=== PATIENT | male | born 1970 | race Caucasian/White ===

== ENCOUNTER 2019-03-07 15:42 | Outpatient (CLI) | payer OTHER | END 2019-03-07 15:43 | disposition home or self-care (01) | LOC: CTENTCT 15:42 | PROVIDERS: ATTEND Otolaryngology Plastic Surgery within the Head & Neck | DX: J32.9 Chronic sinusitis, unspecified (principal) | CPT/HCPCS: 70486 ==

== ENCOUNTER 2019-03-30 09:58 | Day surgery (SDC) | payer OTHER ==
[2019-03-29 10:41] VITALS: BMI 35.8
[2019-03-30] MEDS ORDERED: Oxymetazoline HCl 0.05% ( 15 ML ) ONE ×2 (10:59→13:11)
[2019-03-30] MEDS ORDERED: Lidocaine 1% w/Epinephrine 1:100K 20 ML VIAL ONE (13:11)
[2019-03-30] MEDS ORDERED: Ferric Subsulfate (ASTRINGYN) 8 ML VIAL ONE (13:11)
[2019-03-30] MEDS ORDERED: Bacitracin Zinc Ointment 30 gm TUBE ONE (13:11)
[2019-03-30] MEDS ORDERED: Fentanyl 100 MCG/2 ML VIAL ONE ×3 (13:14→15:03)
[2019-03-30] MEDS ORDERED: PROPOFOL 200 MG/20 ML VIAL ONE (14:00)
[2019-03-30] MEDS ORDERED: Succinylcholine Chloride 20 MG/ML 10 ml SYRINGE FS ONE (14:00)
[2019-03-30] MEDS ORDERED: Dexamethasone 20 MG/5 ML VIAL ONE (14:00)
[2019-03-30] MEDS ORDERED: Ondansetron PF 4 MG/2 ML Vial ONE (14:00)
[2019-03-30] MEDS ORDERED: Glycopyrrolate 0.2 MG/ML 5 ML SYRINGE ONE (14:00)
[2019-03-30] MEDS ORDERED: Rocuronium Bromide 10 MG/ML (10ML VIAL) ONE (14:00)
[2019-03-30] MEDS ORDERED: Lidocaine 1% PF 5 ML VIAL ONE (14:00)
[2019-03-30] MEDS ORDERED: Morphine 4 MG/ML VIAL ONE (15:03)
[2019-03-30] MEDS ORDERED: Labetalol HCl 100 MG/20 ML VIAL ONE (15:35)
[2019-03-30] MEDS ORDERED: Morphine 2 MG/ML SYRINGE ONE ×2 (15:37→16:37)
[2019-03-30] MEDS ORDERED: Hydrocodone-Acetamin 15 ML UDCUP ONE (17:28)
--- NOTE | 2019-03-31 09:48 | OP ---
DATE OF PROCEDURE: 03/30/2019 PREOPERATIVE DIAGNOSES: 1. Chronic rhinosinusitis. 2. Nasal septal deviation. 3. Bilateral inferior turbinate hypertrophy. 4. Chronic adenotonsillitis. 5. Adenotonsillar hypertrophy. 6. Uvula hypertrophy. 7. Obstructive sleep apnea. 8. Closed nasal fracture. 9. Acquired nasal deformity. POSTOPERATIVE DIAGNOSES: 1. Chronic rhinosinusitis. 2. Nasal septal deviation. 3. Bilateral inferior turbinate hypertrophy. 4. Chronic adenotonsillitis. 5. Adenotonsillar hypertrophy. 6. Uvula hypertrophy. 7. Obstructive sleep apnea. 8. Closed nasal fracture. 9. Acquired nasal deformity. PROCEDURES PERFORMED: 1. Bilateral endoscopic sinus surgery, total ethmoidectomies. 2. Bilateral endoscopic sinus surgery, maxillary antrostomies. 3. Bilateral endoscopic sinus surgery, frontal sinusotomies. 4. Bilateral endoscopic sinus surgery, sphenoidotomies. 5. Bilateral inferior turbinate submucosal resection. 6. Nasal septoplasty. 7. Tonsillectomy and adenoidectomy. 8. Uvulectomy. 9. Closed reduction of nasal fracture. ESTIMATED BLOOD LOSS: 100 mL. COMPLICATIONS: None. ANESTHESIA: GETA. PROCEDURE IN DETAIL: After consent was obtained, the patient was identified, brought to the operating room, and placed on the operating table in the supine position. General endotracheal anesthesia and intravenous access were obtained and we proceeded with positioning the patient for oropharyngeal surgery. Oropharyngeal exposure was obtained with a Simran-Tarik mouth gag after a head drape was placed and secured with a towel clip. The Simran-Tarik mouth gag was then suspended from the Norris tray and palatal elevation was achieved with a red rubber catheter. The right tonsil was addressed first. We used a curved Allis to grasp the tonsil and retract it medially as an anterior pillar incision was made. The retrotonsillar fascial plane was then established and blunt dissection was performed with the suction cautery. Blood vessels were anticipated, identified, and cauterized as they were encountered. Ultimately, dissection was carried to the posterior tonsillar pillar mucosa which was incised hemostatically, as well as the base of tongue connection. The tonsil was then passed off as a specimen and bleeding points within the tonsillar bed were cauterized under direct visualization. We subsequently turned our attention to the contralateral side, where using a similar technique, a near identical procedure was performed. Again, the tonsil was grasped and retracted medially with a curved Allis. The retrotonsillar fascial plane was established and while the anterior pillar was retracted medially. The hemostatic blunt dissection of the tonsil with a suction cautery was performed with blood vessels anticipated, identified, and cauterized as they were encountered. Again, dissection continued to the base of tongue and posterior tonsillar pillar mucosa which was incised in a hemostatic fashion. The tonsillar beds were then carefully inspected and bleeding points were identified and cauterized with a suction cautery. After this portion of the procedure, hemostasis was completely obtained. Under direct mirror visualization, we visualized the adenoid pad. Under direct mirror visualization, we removed the bulk of the adenoid tissue with the adenoid curette. We then packed the nasopharynx for an appropriate period of time with Lym-Ztfzuvmluf-roecgzoqu tonsillar sponges. After a period of observation, we removed the pack. Under indirect mirror visualization, we obtained hemostasis and vaporization of residual adenoid tissue with electrocautery. The patient's oral cavity was copiously irrigated with iced saline and subsequently suctioned. After completion of the procedure, the nasal cavity and oropharynx were irrigated and suctioned as were the gastric contents. The patient was then awakened and transferred to the recovery room where the patient remained in stable condition prior to discharge to Day Stay. Following this, the multiple measurements were made of the uvula and soft palate and the excessive portions of the uvula were excised using the Bovie electrocautery. The mucosal edges were then reapproximated using a 3-0 chromic gut stitch. Following this, 1% lidocaine with 1:100,000 epinephrine were injected into the middle turbinates and lateral nasal wall bilaterally. Following this, the 0-degree endoscope was used to visualize the middle turbinate and the middle turbinate was medially fractured using a [place] elevator. Following this, the uncinate process was identified and was examined. The uncinate process was noted to be inflamed and laterally displaced bilaterally. Following this, a ball-ended probe was used to anteriorly fracture the uncinate process bilaterally. Following this, the 0-degree microdebrider and the up-biting Blakesley forceps were used to remove the uncinate process bilaterally. Following this, the natural maxillary sinus ostia was identified with the 0-degree endoscope and the ball-ended probe. The natural maxillary ostia was then widened using a 40-degree microdebrider and the straight Blakesley forceps bilaterally. Following this, the ethmoidal bulla was identified bilaterally. A 0-degree microdebrider was used to puncture the ethmoidal bulla on its medial and inferior aspect bilaterally. Following this, the 0-degree microdebrider and the up-biting Blakesley forceps were used to remove the ethmoidal bulla. Following this, the grand lamella was identified posterior to this area and was punctured using the 0-degree microdebrider bilaterally. Following this, the ethmoidal cells were opened from the posterior to the anterior using the 0-degree microdebrider, the 40-degree microdebrider and the up-biting Blakesley forceps bilaterally. Following this, the 45-degree endoscope and the 40-degree microdebrider blade were used to further remove the anterior ethmoidal cells to the level of the frontal sinus recess bilaterally. Patient was taken to the operating room and placed supine on the table. General endotracheal anesthesia was obtained by the anesthesia staff. Tube was secured in the left lower lip. Patient was then placed in the beach chair position, and Afrin pledgets were placed in the nasal cavity. Injections of 1% lidocaine with 1:100,000 epinephrine were made into the nasal septum as well as the inferior turbinates. Patient was then prepped and draped in standard surgical fashion for nasal surgery. Following this, the Afrin pledgets were removed. A Luis incision was made on the left nasal septum. Submucoperichondrial dissection was performed. The deviated portions of the septum included portions of the cartilage and the bony septum. These isolated areas were removed using 3 cutting rongeurs. There was noted to be a large dorsal and caudal strut, left intact for support of the nose. The mucoperichondrial flaps were then reapproximated using a 4-0 gut stitch. Any straight pieces of cartilage were crushed prior to this and placed between the mucoperichondrial flaps. Following this, the inferior turbinates were then punctured with a submucosal coblation wand, and submucosal coblations were performed of multiple areas of the inferior portion of the anterior inferior turbinate. Following this, the 0-degree endoscope was advanced into the previous ethmoidectomies and identify the sphenoid sinus anterior wall bilaterally. Following this, sphenoidotomies were created using the 0-degree microdebrider bilaterally. Following this, the sphenoidotomies were widened in a medial and inferior direction with the 0-degree microdebrider. Following this, the 45-degree endoscope along with a 40-degree microdebrider blade were used to widen the frontal sinus ostia bilaterally. Following this, small incisions were made in the nasal mucosa in a transcartilaginous incision and a lateral wall incision. The 3 mm straight osteotome was used to create medial osteotomies of the nasal bones followed bilateral osteotomies. The nasal bones were completely mobilized and repositioned correcting the nasal wall deformity. Following this, the nasal cavity was irrigated. Mirapex was placed within the middle meatus. Bilateral maxillary sinus PROPEL stents were placed. Bradford splints were placed and secured and an external Mcduffie Splint was placed. The patient tolerated the procedure well. Job ID: [id number]
--- NOTE | 2019-04-05 22:34 | EKG ---
Test Reason : PREOP Blood Pressure : / mmHG Vent. Rate : 059 BPM Atrial Rate : 059 BPM P-R Int : 176 ms QRS Dur : 102 ms QT Int : 408 ms P-R-T Axes : 034 000 016 degrees QTc Int : 403 ms Sinus bradycardia Increased R/S ratio in V1, consider early transition or posterior infarct Abnormal ECG No previous ECGs available Confirmed by Sergio VANN ([id number]) on 04/05/2019 10:33:57 PM Referred By: CRISTINA Confirmed By:Sergio VANN
== END 2019-03-30 18:10 | disposition home or self-care (01) ==
LOC: SDC 09:58 → EEVIPCON 09:58 → SDC 18:10
PROVIDERS: ATTEND Otolaryngology Plastic Surgery within the Head & Neck
PROC: 099Q8ZZ Drainage of Right Maxillary Sinus, Via Natural or Artificial Opening Endoscopic (ICD-10-PCS; principal; 2019-03-30)
PROC: 09TL7ZZ Resection of Nasal Turbinate, Via Natural or Artificial Opening (ICD-10-PCS; principal; 2019-03-30)
PROC: 099R8ZZ Drainage of Left Maxillary Sinus, Via Natural or Artificial Opening Endoscopic (ICD-10-PCS; principal; 2019-03-30)
PROC: 09TV8ZZ Resection of Left Ethmoid Sinus, Via Natural or Artificial Opening Endoscopic (ICD-10-PCS; principal; 2019-03-30)
PROC: 099T8ZZ Drainage of Left Frontal Sinus, Via Natural or Artificial Opening Endoscopic (ICD-10-PCS; principal; 2019-03-30)
PROC: 09SM0ZZ Reposition Nasal Septum, Open Approach (ICD-10-PCS; principal; 2019-03-30)
PROC: 099X8ZZ Drainage of Left Sphenoid Sinus, Via Natural or Artificial Opening Endoscopic (ICD-10-PCS; principal; 2019-03-30)
PROC: 0CBNXZZ Excision of Uvula, External Approach (ICD-10-PCS; principal; 2019-03-30)
PROC: 09TU8ZZ Resection of Right Ethmoid Sinus, Via Natural or Artificial Opening Endoscopic (ICD-10-PCS; principal; 2019-03-30)
PROC: 099W8ZZ Drainage of Right Sphenoid Sinus, Via Natural or Artificial Opening Endoscopic (ICD-10-PCS; principal; 2019-03-30)
PROC: 099S8ZZ Drainage of Right Frontal Sinus, Via Natural or Artificial Opening Endoscopic (ICD-10-PCS; principal; 2019-03-30)
PROC: 0CTPXZZ Resection of Tonsils, External Approach (ICD-10-PCS; principal; 2019-03-30)
PROC: 0CTQXZZ Resection of Adenoids, External Approach (ICD-10-PCS; principal; 2019-03-30)
DX: J32.9 Chronic sinusitis, unspecified (principal); J34.2 Deviated nasal septum; J34.3 Hypertrophy of nasal turbinates; J35.03 Chronic tonsillitis and adenoiditis; K13.79 Other lesions of oral mucosa; G47.33 Obstructive sleep apnea (adult) (pediatric); J34.89 Other specified disorders of nose and nasal sinuses; S02.2XXA Fracture of nasal bones, initial encounter for closed fracture; F17.200 Nicotine dependence, unspecified, uncomplicated; Z79.899 Other long term (current) drug therapy
CPT/HCPCS: 88302; 88304; 93005; 93010; J1100; J2001; J2270; J2405; J2704; J3010